=== PATIENT | female | born 1995 | race Two or more races ===

== ENCOUNTER 2023-11-25 10:43 | Emergency (ER) | payer OTHER ==
[~2023-11-25] VITALS: Ht 160 cm; Wt 108.6 kg
[2023-11-25 11:18] VITALS: BP 148/89; PULSE 86; RESP 16; TEMP 98.3; O2SAT 98
== END 2023-11-25 11:59 | disposition home or self-care (01) ==
LOC: ER 10:43
DX: S61.217D Laceration without foreign body of left little finger without damage to nail, subsequent encounter (principal); X58.XXXD Exposure to other specified factors, subsequent encounter